=== PATIENT | female | born 1975 | race Caucasian/White ===

== ENCOUNTER 2019-01-16 22:04 | Emergency (ER) | payer BC ==
--- NOTE | 2019-01-16 22:24 | ED.PDOC ---
History of Present Illness - General Chief Complaint: Headache Stated Complaint: headache, right cheek swelling, blurred vision R e Time Seen by Provider: 01/16/19 22:22 Source: patient, Vital Signs reviewed Exam Limitations: no limitations Additional Information: 43 YEAR OLD WHITE FEMALE PRESENTS WITH HEADACHE RIGHT PERIORBITAL HAS BEEN RTREATED WITH ANTIBIOTICS RECENTLY FOR EAR INFECTION SHE HAS INDIO HAVING HOARSENESS OCCASIONAL DIFFICULTY SWALLOWING BUT NO WEIGHT LOSS NO SWOLLEN NECK GLANDS - History of Present Illness Timing/Duration: 4-6 hours Severity: mild Improving Factors: nothing Worsening Factors: nothing Associated Symptoms: denies symptoms Allergies/Adverse Reactions: Allergies Penicillins Allergy (Verified 01/16/19 22:21) Home Medications: Ambulatory Orders Cbd Oil 1 ml SL DAILY 01/16/19 Cetirizine HCl [ZyrTEC] 10 mg PO DAILY 01/16/19 Estradiol Vaginal [Estradiol] 0.01 % TOP DAILY 01/16/19 Sulfa/Trimeth 800/160 (Ds) Tab [Bactrim DS Tab] 1 ea PO Q12HR #20 tab 01/17/19 Review of Systems - Review of Systems Constitutional: States: no symptoms reported EENTM: States: no symptoms reported, throat pain Respiratory: States: no symptoms reported Cardiology: States: no symptoms reported Gastrointestinal/Abdominal: States: no symptoms reported Genitourinary: States: no symptoms reported Musculoskeletal: States: no symptoms reported Skin: States: no symptoms reported Neurological: States: no symptoms reported Endocrine: States: no symptoms reported Hematologic/Lymphatic: States: no symptoms reported Past Medical History (General) - Patient Medical History Hx Seizures: No Hx Stroke: No Hx Dementia: No Hx Asthma: No Hx of COPD: No Hx Cardiac Disorders: No Hx Congestive Heart Failure: No Hx Pacemaker: No Hx Hypertension: No Hx Thyroid Disease: No Hx Diabetes: No Hx Gastroesophageal Reflux: No Hx Renal Disease: No Hx Cancer: No Hx of HIV: No Hx Hepatitis C: No Hx MRSA: No Surgical History: appendectomy, cholecystectomy, Hysterectomy - Vaccination History Hx Tetanus, Diphtheria Vaccination: No Hx Influenza Vaccination: No - Social History Hx Tobacco Use: Yes - quit 2.5 years ago Family Medical History - Family History Mother Family History: Unknown Physical Exam - Physical Exam General Appearance: Alert, Comfortable Eye Exam: bilateral normal Ears, Nose, Throat: hearing grossly normal, normal ENT inspection, normal pharynx, other - THERE IS MILD ERYTHEMA AND EDEMA OF LOWER EYELID ZACHARY ON THE RIGHT TENDER OVER ZYGOMA Neck: non-tender, full range of motion, supple Respiratory: chest non-tender, lungs clear, normal breath sounds, no respiratory distress, no accessory muscle use Cardiovascular/Chest: normal peripheral pulses, regular rate, rhythm, no edema, no gallop, no JVD Gastrointestinal/Abdominal: normal bowel sounds, non tender, soft, no organomegaly, no pulsatile mass Back Exam: normal inspection, no CVA tenderness Extremity: normal range of motion, non-tender, no pedal edema, no calf tenderness 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 Copy, Patient Portal Self Enrollment Instructions: DI for Headache Referrals: Pankaj Dawson FNP [Primary Care Provider] - 1-2 Weeks Prescriptions: Sulfa/Trimeth 800/160 (Ds) Tab [Bactrim DS Tab] 1 ea PO Q12HR #20 tab Home Medications: Ambulatory Orders Cbd Oil 1 ml SL DAILY 01/16/19 Cetirizine HCl [ZyrTEC] 10 mg PO DAILY 01/16/19 Estradiol Vaginal [Estradiol] 0.01 % TOP DAILY 01/16/19 Sulfa/Trimeth 800/160 (Ds) Tab [Bactrim DS Tab] 1 ea PO Q12HR #20 tab 01/17/19
[2019-01-16] MEDS ORDERED: KETOROLAC TROMETHAMINE INJ 60 MG/2 ML VIAL IM ONE (22:27)
[2019-01-16] MEDS ORDERED: PROMETHAZINE HCL INJ 25 MG/ML VIAL IM ONE (22:27)
[2019-01-16] MEDS ORDERED: fentaNYL CITRATE INJ 50 MCG/ML AMP IM ONE (23:15)
--- NOTE | 2019-01-16 23:44 | CT ---
EXAM DESCRIPTION: Head CLINICAL HISTORY: 43 years Female headache COMPARISON: None TECHNIQUE: Images were obtained in axial, sagittal, and coronal planes. This exam was performed according to our departmental dose-optimization program which includes use of Automated Exposure Control, adjustment of the mA and/or kV according to patient size and/or use of iterative reconstruction technique. FINDINGS: Ventricular system appears normal. No abnormal areas of increased or decreased attenuation are seen involving the brain parenchyma. No extra-axial fluid collections noted. No evidence for skull fracture. Symmetric aeration mastoid air cells bilaterally. Unremarkable paranasal sinuses. IMPRESSION: No acute intracranial abnormality. No evidence for hemorrhage, mass lesion, or large acute infarction. Electronically signed by: Justine Price MD 01/16/2019 11:42 PM CDT
--- NOTE | 2019-01-16 23:50 | CT ---
EXAM DESCRIPTION: Sinuses CLINICAL HISTORY: 43 years Female right cheek swelling COMPARISON: None TECHNIQUE: Images were obtained in axial, sagittal, and coronal planes. This exam was performed according to our departmental dose-optimization program which includes use of Automated Exposure Control, adjustment of the mA and/or kV according to patient size and/or use of iterative reconstruction technique. FINDINGS: Mild right periorbital and right facial soft tissue swelling. Right lacrimal gland is mildly increased in size as compared to the right. Intact globes bilaterally. No intraconal abnormality bilaterally. Unremarkable paranasal sinuses. No abnormal mucosal thickening or air-fluid levels seen. Frontal and ethmoid regions are patent bilaterally. Ostiomeatal regions are patent bilaterally. Mild mucosal thickening nasal turbinates. No dental abscess seen. No cortical disruption. No abnormal periosteal reaction. No subperiosteal abscess involving the orbits bilaterally. IMPRESSION: Mild right periorbital and facial cellulitis. Mild inflammation right lacrimal gland. No evidence for right periorbital abscess. No definite sinusitis Electronically signed by: Justine Price MD 01/16/2019 11:47 PM CDT
[2019-01-17] MEDS ORDERED: SULFA/TRIMETH 800/160 (DS) TAB 1 EA TAB PO ONE (01:50)
[2019-01-17 01:57] VITALS: BP 101/66; TEMP 98; O2SAT 97
== END 2019-01-17 02:05 | disposition home or self-care (01) ==
LOC: ER 22:04
DX: R51 Headache (principal); L03.211 Cellulitis of face; Z87.891 Personal history of nicotine dependence; Z88.0 Allergy status to penicillin
CPT/HCPCS: 70450; 70486; 80053; 85025; 87040; J1885; J2550; J3010